=== PATIENT | female | born 1990 | race Caucasian/White ===

== ENCOUNTER 2017-03-23 09:43 | Emergency (ER) | payer OTHER ==
[~2017-03-23] VITALS: Ht 162.6 cm; Wt 100.7 kg
[2017-03-23 09:52] VITALS: BP_SYST 119
[2017-03-23 10:26] LABS: BASOPHILS # (AUTO) 0.1 K/uL (0.0-0.2); EOSINOPHILS # (AUTO) 0.1 K/uL (0.0-0.4); EOSINOPHILS % (AUTO) 0.5 % (0.0-4.0); HEMATOCRIT 40.3 % (36-48); HEMOGLOBIN 13.4 g/dL (12.0-16.0); LYMPHOCYTES # (AUTO) 1.3 K/uL (1.0-5.5); LYMPHOCYTES % (AUTO) 11.4 % (20.5-51.5); MEAN CORPUSCULAR HEMOGLOBIN 30 pg (27-31); MEAN CORPUSCULAR HGB CONC 33 % (32-36); MEAN CORPUSCULAR VOLUME 89 fL (79.0-98.0); MONOCYTES # (AUTO) 0.6 K/uL (0.0-1.0); MONOCYTES % (AUTO) 5.2 % (1.7-9.3); NEUTROPHILS # (AUTO) 8.9 K/uL (1.8-7.7); NEUTROPHILS % (AUTO) 81.9 % (40.0-70.0); PLATELET COUNT (AUTO) 205 K/uL (130-430); RED CELL DISTRIBUTION WIDTH 12.1 % (9.0-15.0)
[2017-03-23 10:32] LABS: CALCIUM 8.9 mg/dL (8.4-11.0); CREATININE 0.64 mg/dL (0.55-1.30); POTASSIUM 3.8 mmol/L (3.5-5.1)
[2017-03-23 10:40] LABS: BILIRUBIN,URINE NEGATIVE (NEGATIVE); BLOOD, URINE 3+ (NEGATIVE); CLARITY/URINE SL HAZY (CLEAR); COLOR,URINE YELLOW (YELLOW); GLUCOSE,URINE NEGATIVE (NEGATIVE); KETONES,URINE NEGATIVE (NEGATIVE); LEUKOCYTE ESTERASE ,URINE TRACE (NEGATIVE); NITRITE, URINE NEGATIVE (NEGATIVE); PH,URINE 6.5 (5.0-8.0); PROTEIN URINE NEGATIVE (NEGATIVE); UROBILINOGEN,URINE 0.2 (0.2-1.0)
[2017-03-23 10:57] LABS: BACTERIA,URINE FEW /HPF (None Seen); MUCUS,URINE 1+ /LPF (None Seen); RBC,URINE 20-50 /HPF (0-3)
[2017-03-23 11:48] LABS: PROTHROMBIN TIME 9.8 SECS (9.5-12.5)
[2017-03-23 12:05] VITALS: BP_SYST 112
== END 2017-03-23 12:05 | disposition home or self-care (01) ==
LOC: SED 09:43
DX: O20.9 Hemorrhage in early pregnancy, unspecified (principal); O26.891 Other specified pregnancy related conditions, first trimester; R19.09 Other intra-abdominal and pelvic swelling, mass and lump; Z3A.08 8 weeks gestation of pregnancy
CPT/HCPCS: 36415; 76801; 76817; 80048; 81000-TC; 81025; 84702-TC; 85025; 85610-TC; 85730-TC; 87086; 99285

== ENCOUNTER 2018-07-25 19:14 | Emergency (ER) | payer BC, OTHER ==
[~2018-07-25] VITALS: Ht 165.1 cm; Wt 96.2 kg
[2018-07-25 19:18] VITALS: BP_SYST 145
--- NOTE | 2018-07-25 19:32 | NUR ---
Patient to ER bed 07 to gown for evaluation. Side rails up.
--- NOTE | 2018-07-25 19:40 | NUR ---
Pt came into ED C/O L upper Q Abd pain, Pt states she has been to Urgent care and also visited her PCP, and S/P [facility] done CT Scan study, both places Dx her as having growth / Tumor at that position. No other injuries and or complaints noted and or observed at this time. Pt resting on gurney with rails up
[2018-07-25] MEDS ORDERED: NACL 0.9% 1,000 ML IV ONE (20:19)
--- NOTE | 2018-07-25 20:20 | NUR ---
Dr. Shin bedside for pt eval
[2018-07-25 20:32] LABS: BILIRUBIN,URINE NEGATIVE (NEGATIVE); BLOOD, URINE NEGATIVE (NEGATIVE); CLARITY/URINE CLEAR (CLEAR); COLOR,URINE YELLOW (YELLOW); GLUCOSE,URINE NEGATIVE (NEGATIVE); KETONES,URINE NEGATIVE (NEGATIVE); LEUKOCYTE ESTERASE ,URINE NEGATIVE (NEGATIVE); NITRITE, URINE NEGATIVE (NEGATIVE); PROTEIN URINE NEGATIVE (NEGATIVE); UROBILINOGEN,URINE 0.2 (0.2-1.0)
[2018-07-25] MEDS ORDERED: IOHEXOL 0 ML IV ONE (20:42)
--- NOTE | 2018-07-25 20:42 | NUR ---
Pt taken to radiology, VSS no s/s of acute distress
--- NOTE | 2018-07-25 20:55 | NUR ---
Pt back from radiology well tolerated
[2018-07-25 21:05] LABS: HEMOGLOBIN 13.4 g/dL (12.0-16.0); RED BLOOD CELL COUNT(AUTO) 4.45 MIL/uL (4.2-6.2); WHITE BLOOD COUNT (AUTO) 9.3 K/uL (4.8-10.8)
[2018-07-25 21:06] LABS: BASOPHILS % (AUTO) 0.4 % (0.0-2.0); EOSINOPHILS # (AUTO) 0.1 K/uL (0.0-0.4); EOSINOPHILS % (AUTO) 0.7 % (0.0-4.0); HEMATOCRIT 39.2 % (36-48); LYMPHOCYTES # (AUTO) 1.4 K/uL (1.0-5.5); MEAN CORPUSCULAR HEMOGLOBIN 30 pg (27-31); MEAN CORPUSCULAR HGB CONC 34 % (32-36); MEAN CORPUSCULAR VOLUME 88 fL (79.0-98.0); MONOCYTES # (AUTO) 0.6 K/uL (0.0-1.0); MONOCYTES % (AUTO) 6.5 % (1.7-9.3); NEUTROPHILS # (AUTO) 7.2 K/uL (1.8-7.7); NEUTROPHILS % (AUTO) 77.4 % (40.0-70.0); PLATELET COUNT (AUTO) 193 K/uL (130-430); RED CELL DISTRIBUTION WIDTH 12.9 % (9.0-15.0)
[2018-07-25 21:13] LABS: CREATININE 0.56 mg/dL (0.55-1.30); POTASSIUM 3.8 mmol/L (3.5-5.1)
[2018-07-25 21:17] LABS: ALBUMIN 3.5 g/dL (3.4-4.8); INR 0.9 (0.8-1.2); PROTHROMBIN TIME 9.4 SECS (9.5-12.5); TOTAL BILIRUBIN 0.4 mg/dL (0.0-1.0)
[2018-07-25] MEDS ORDERED: MORPHINE 4 MG/ML INJ. SYRINGE IVP ONE (21:45)
[2018-07-25] MEDS ORDERED: DIPHENHYDRAMINE INJ 50 MG/ML VIAL IVP ONE (21:45)
[2018-07-25 23:05] VITALS: BP_SYST 145
--- NOTE | 2018-07-25 23:05 | NUR ---
Patient given written and verbal discharge instructions and verbalizes understanding. ER MD discussed with patient the results and treatment provided. Patient in stable condition. ID arm band removed. IV catheter removed intact and dressing applied, no active bleeding. Rx of IB Profen and Tylenol with Codeine given. Patient educated on pain management and to follow up with PMD. Pain Scale 0/10. Opportunity for questions provided and answered. Medication side effect fact sheet provided.
== END 2018-07-25 23:05 | disposition home or self-care (01) ==
LOC: SED 19:14
DX: D27.1 Benign neoplasm of left ovary (principal); R06.02 Shortness of breath; R03.0 Elevated blood-pressure reading, without diagnosis of hypertension
CPT/HCPCS: 36415; 74176; 80053; 81003; 85025; 85610; 85730; 96361; 96374; 96375; 99284; J1200; J2270; J7030; Q9967

== ENCOUNTER 2018-08-16 13:39 | Emergency (ER) | payer BC ==
[~2018-08-16] VITALS: Ht 165.1 cm; Wt 95.3 kg
[2018-08-16] MEDS ORDERED: ONDANSETRON HCL 4 MG/2 ML VIAL IVP ONE (13:45)
[2018-08-16] MEDS ORDERED: NACL 0.9% 1,000 ML IV ONE (13:45)
[2018-08-16] MEDS ORDERED: MORPHINE 4 MG/ML INJ. SYRINGE IVP ONE (13:45)
[2018-08-16 13:50] VITALS: BP_SYST 123
--- NOTE | 2018-08-16 13:56 | NUR ---
Patient triaged and placed in waiting room. VSS and patient appears in no acute distress at this time. Accompanied by self, awaiting available bed, and MD notified of need for MSE.
--- NOTE | 2018-08-16 13:57 | NUR ---
Lab at bedside for blood draw
[2018-08-16 14:06] LABS: BASOPHILS % (AUTO) 0.4 % (0.0-2.0); EOSINOPHILS # (AUTO) 0.1 K/uL (0.0-0.4); LYMPHOCYTES # (AUTO) 1.5 K/uL (1.0-5.5); LYMPHOCYTES % (AUTO) 15.8 % (20.5-51.5); MEAN CORPUSCULAR HEMOGLOBIN 30 pg (27-31); MEAN CORPUSCULAR HGB CONC 34 % (32-36); MEAN CORPUSCULAR VOLUME 89 fL (79.0-98.0); MONOCYTES # (AUTO) 0.4 K/uL (0.0-1.0); MONOCYTES % (AUTO) 4.4 % (1.7-9.3); NEUTROPHILS # (AUTO) 7.6 K/uL (1.8-7.7); NEUTROPHILS % (AUTO) 78.4 % (40.0-70.0); PLATELET COUNT (AUTO) 203 K/uL (130-430); RED BLOOD CELL COUNT(AUTO) 4.62 MIL/uL (4.2-6.2); RED CELL DISTRIBUTION WIDTH 13.4 % (9.0-15.0); WHITE BLOOD COUNT (AUTO) 9.7 K/uL (4.8-10.8)
[2018-08-16 14:29] LABS: INR 0.9 (0.8-1.2); PROTHROMBIN TIME 9.4 SECS (9.5-12.5)
--- NOTE | 2018-08-16 14:31 | NUR ---
Placed in room 01 . Placed on security monitor, blood pressure machine and pulse oximeter. To gown for exam. Side rails up.
--- NOTE | 2018-08-16 14:40 | NUR ---
Pt moved to bed 07
--- NOTE | 2018-08-16 14:42 | NUR ---
ER Dr. Lincoln at bedside examining patient.
--- NOTE | 2018-08-16 14:45 | NUR ---
Pt AAOx4 ambulated into ED c/o 02/05 LLQ pain x 3 days . Pt states she was diagnosed with dermoid cyst and is scheduled for abd sx next week. Pt denies n/v/d. No other injuries/complaints per pt/noted. Will continue to monitor.
[2018-08-16 14:46] LABS: BILIRUBIN,URINE NEGATIVE (NEGATIVE); BLOOD, URINE NEGATIVE (NEGATIVE); CLARITY/URINE CLEAR (CLEAR); COLOR,URINE YELLOW (YELLOW); GLUCOSE,URINE NEGATIVE (NEGATIVE); KETONES,URINE NEGATIVE (NEGATIVE); LEUKOCYTE ESTERASE ,URINE NEGATIVE (NEGATIVE); NITRITE, URINE NEGATIVE (NEGATIVE); PROTEIN URINE NEGATIVE (NEGATIVE); UROBILINOGEN,URINE 0.2 (0.2-1.0)
[2018-08-16 15:24] LABS: CALCIUM 8.9 mg/dL (8.4-11.0); CREATININE 0.62 mg/dL (0.55-1.30); POTASSIUM 3.9 mmol/L (3.5-5.1)
[2018-08-16 15:29] LABS: ALBUMIN 3.6 g/dL (3.4-4.8); TOTAL BILIRUBIN 0.5 mg/dL (0.0-1.0)
--- NOTE | 2018-08-16 17:20 | NUR ---
Pt taken to radiology via gurney in stable condition
--- NOTE | 2018-08-16 18:05 | NUR ---
Pt returned from ultrasound in stable condition. Pt reports mild relief of pain, states " I don't need more pain meds right now. Maybe later."
[2018-08-16 18:33] VITALS: BP_SYST 127
--- NOTE | 2018-08-16 18:33 | NUR ---
Patient given written and verbal discharge instructions and verbalizes understanding. ER MD Lincoln discussed with patient the results and treatment provided. Patient in stable condition. ID arm band removed. Rx of Timbo Quesada given. Patient educated on pain management and to follow up with PMD. Pain Scale 0. Opportunity for questions provided and answered. Medication side effect fact sheet provided.
== END 2018-08-16 18:33 | disposition home or self-care (01) ==
LOC: SED 13:39
DX: D23.5 Other benign neoplasm of skin of trunk (principal); R03.0 Elevated blood-pressure reading, without diagnosis of hypertension
CPT/HCPCS: 36415; 76830; 76857; 80053; 81003; 81025; 82150; 83690; 85025; 85610; 85730; 96374; 96375; 99284; J2270; J2405; J7030

== ENCOUNTER 2019-05-10 21:24 | Emergency (ER) | payer BC, MEDICAID ==
[~2019-05-10] VITALS: Ht 165.1 cm; Wt 95.3 kg
[2019-05-10 21:50] VITALS: BP_SYST 116
== END 2019-05-10 23:51 | disposition left against medical advice (07) ==
LOC: SED 21:24
DX: G43.909 Migraine, unspecified, not intractable, without status migrainosus (principal); Z53.21 Procedure and treatment not carried out due to patient leaving prior to being seen by health care provider